=== PATIENT | female | born 1995 | race Caucasian/White ===

== ENCOUNTER 2017-06-04 15:38 | Emergency (ER) | payer OTHER ==
[~2017-06-04] VITALS: Ht 160 cm; Wt 70.9 kg
[~2017-06-04 15:38] MED LIST: AMITRIPTYLINE H25 MG PO; FETZIMA80 MG PO; FIORICET,ESG1 TABLET PO; FLUTICASONE PRO16 GM BOTH NARES; HYDROCODON-ACE1 EAC7 PO; IBUPROFEN600 MG PO; KLONOPIN0.5 M1 PO; LEXAPRO10 MG PO; METOPROLOL TART25 MG PO; MOTRIN400 MG PO; SUMATRIPTAN SUC25 MG PO; TOPAMAX100 MG PO; TOPAMAX50 MG PO; VENTOLIN HFA18 GM IH
[2017-06-04 16:44] LABS: HEMATOCRIT 45.8 % (36.0-46.0); MCH 25.9 PG (29.0-34.0); MCHC 31.4 G/DL (30.0-36.0); MCV 82.5 FL (83-99); MEAN PLAT.VOLUME 10.7 uM^3 (9.5-12.4); PLATELET COUNT 271 K/uL (156-360); RBC DIS.WIDTH-CV 12.1 % (11.8-14.6); RBC DIS.WIDTH-SD 36.8 % (39-53); RED BLOOD COUNT 5.55 M/uL (3.80-5.20); WHITE BLOOD COUNT 6.4 K/uL (4.1-10.2)
[2017-06-04] MEDS ORDERED: FLORINEF ACETA0.1 MG PO (16:45)
[2017-06-04] MEDS ORDERED: FETZIMA120 MG PO (16:45)
[2017-06-04] MEDS ORDERED: SOLODYN PO (16:46)
[2017-06-04] MEDS ORDERED: SPIRONOLACTONE50 MG PO (16:46)
[2017-06-04] MEDS ORDERED: EPIDUO FORTE 0.45 GM TP (16:47)
[2017-06-04] MEDS ORDERED: ACZONE60 GM TP (16:47)
[2017-06-04] MEDS ORDERED: IRON18 MG PO (16:48)
[2017-06-04] MEDS ORDERED: PROBIOTIC1 EAC1 PO (16:48)
[2017-06-04] MEDS ORDERED: BUTALBITAL COM1 EAC1 PO (16:49)
[2017-06-04] MEDS ORDERED: METHOCARBAMOL500 MG PO (16:49)
[2017-06-04] MEDS ORDERED: ONDANSETRON ODT8 MG PO (16:49)
[2017-06-04] MEDS ORDERED: IBUPROFEN800 MG PO (16:49)
[2017-06-04] MEDS ORDERED: TRAMADOL HCL50 MG PO (16:50)
[2017-06-04 16:58] LABS: CHLORIDE 104 mEq/L (99-109); POTASSIUM 4.3 mEq/L (3.7-5.4); SODIUM 140 mEq/L (136-147)
[2017-06-04 17:00] LABS: GLUCOSE 85 mg/dL (70-99)
[2017-06-04 17:01] LABS: ANION GAP 10 MEQ/L (2-14)
[2017-06-04 17:03] LABS: GFR ESTIMATE (CALCULATED) > 59 mL/min/
[2017-06-04 17:04] LABS: UREA NITROGEN (BUN) 16 mg/dL (9-23)
[2017-06-04 17:26] LABS: ATYPICAL LYMPHOCYTE 13.2 %; EOSINOPHIL ABS CT 0.2; EOSINOPHILS 3.5 % (0-5.0); INSTRUMENT ABS NEUTROPHIL CT 3.2 K/uL; LYMPHOCYTES 28.9 % (15.0-45.0); PLAT.SUFFICIENCY ADEQUATE; SEG.NEUTROPHILS 47.4 % (46.0-76.0); SMUDGE CELLS 6.1
[2017-06-04] MEDS ORDERED: REGLAN10 MG PO (18:00)
[2017-06-04] MEDS ORDERED: MOTRIN600 MG PO (18:00)
[2017-06-04 18:32] VITALS: BP 101/57
== END 2017-06-04 18:33 | disposition home or self-care (01) ==
LOC: EME 15:38
PROVIDERS: Physician Assistant Medical
DX: R51 Headache (principal); J45.909 Unspecified asthma, uncomplicated; Q79.6 Ehlers-Danlos syndromes; R56.9 Unspecified convulsions; F41.9 Anxiety disorder, unspecified
CPT/HCPCS: 70450; 80048; 85025; 99281; 99284; J1200; J1885; J2765; J7030